=== PATIENT | male | born 1985 | race Caucasian/White ===

== ENCOUNTER 2020-11-26 20:34 | Inpatient (IN) | payer SELFPAY ==
[2020-11-26 21:15] LABS: #Lymphocytes 0.2 thou/uL (1.20-3.40); #Monocytes 0.3 thou/uL (0.11-0.59); #Neutrophils 5.7 thou/uL (1.40-6.50); %Basophils 0.1 % (0.0-1.0); %Lymphocytes 2.7 % (21.0-51.0); %Neutrophils 93.2 % (42.0-75.0); Hemoglobin 14.6 g/dL (14.0-18.0); Mean Corpuscular HGB CONC 36.7 g/dL (32.0-36.0); Mean Corpuscular Hemoglobin 32.3 pg (27.0-31.0); Mean Platelet Volume 7.1 fL (7.4-10.4); Platelet Count 204 thou/uL (130-400); RBC Distribution Width 12.1 % (11.5-14.5); Red Blood Cell (RBC) Count 4.53 mill/uL (4.70-6.10); White Blood Cell (WBC) Count 6.1 thou/uL (4.8-10.8)
[2020-11-26 21:36] LABS: ALT (SGPT) 156 U/L (8-55); AST (SGOT) 95 U/L (5-34); Albumin 3.2 g/dL (3.5-5.0); Alkaline Phosphatase 250 U/L (40-110); Anion Gap 17 mmol/L (10-20); BUN (Urea Nitrogen) 13 mg/dL (8.9-20.6); Bilirubin, Total 6.1 mg/dL (0.2-1.2); CK (CPK) 131 U/L (30-200); Calc. Creatinine Clearance 0 mL/min (70-130); Calcium 8.5 mg/dL (7.8-10.44); Carbon Dioxide 19 mmol/L (22-29); Chloride 102 mmol/L (98-107); Glucose 130 mg/dL (70-105); Potassium 4.4 mmol/L (3.5-5.1); Protein, Total 6.2 g/dL (6.0-8.3); Sodium 134 mmol/L (136-145)
[2020-11-26] MEDS ORDERED: Lidocaine 1% w/Epinephrine 1:100K 20 ML VIAL ONE (22:03)
[2020-11-26] MEDS ORDERED: Bupivacaine 0.25% HCL 30 ML VIAL ONE (22:03)
[2020-11-26] MEDS ORDERED: Fentanyl 250 MCG/5 ML VIAL ONE (22:21)
[2020-11-26] MEDS ORDERED: Midazolam HCl 2 mg/2 ml Vial ONE (22:27)
[2020-11-26] MEDS ORDERED: PROPOFOL 200 MG/20 ML VIAL ONE (22:33)
[2020-11-26] MEDS ORDERED: Rocuronium Bromide 10 MG/ML (10ML VIAL) ONE (22:33)
[2020-11-26] MEDS ORDERED: Succinylcholine 200 MG/10 ml SYRINGE FS ONE (22:33)
[2020-11-26] MEDS ORDERED: diphenhydrAMINE 50 MG/ML VIAL ONE (22:33)
[2020-11-26] MEDS ORDERED: Ketorolac Tromethamine 30 MG/ML VIAL ONE (22:33)
[2020-11-26] MEDS ORDERED: Dexamethasone 20 MG/5 ML VIAL ONE (22:33)
[2020-11-26] MEDS ORDERED: Glycopyrrolate 0.2 MG/ML 5 ML SYRINGE ONE (22:33)
[2020-11-26] MEDS ORDERED: Ondansetron PF 4 MG/2 ML Vial ONE (22:33)
[2020-11-26] MEDS ORDERED: Piperacillin/Tazobactam 3.375 GM VIAL ONE (22:40)
[2020-11-27] MEDS ORDERED: Dextrose 50% Abboject 50 ML SYRINGE SLOW IVP PRN (00:35)
[2020-11-27] MEDS ORDERED: Ondansetron PF 4 MG/2 ML Vial IVP PRN (00:35)
[2020-11-27] MEDS ORDERED: Dextrose 5% in Water 1,000 ML IV PRN (00:35)
[2020-11-27] MEDS ORDERED: Chloraseptic Spray 180 ml Bottle PO PRN (00:41)
[2020-11-27] MEDS ORDERED: Cepastat Lozenges 1 LOZ PO PRN (00:41)
[2020-11-27] MEDS ORDERED: Ondansetron HCl/PF 4 MG/2 ML Vial IVP PRN (00:46)
[2020-11-27] MEDS ORDERED: Promethazine HCl 25 MG/ML VIAL IM PRN (00:46)
[2020-11-27] MEDS ORDERED: HYDROmorphone 2 MG/ML VIAL SLOW IVP PRN (00:46)
[2020-11-27] MEDS ORDERED: PACU-Morphine 4MG/ML VIAL SLOW IVP PRN (00:46)
[2020-11-27] MEDS ORDERED: Morphine Sulfate 2 MG/ML SYRINGE SLOW IVP PRN (00:46)
[2020-11-27] MEDS ORDERED: Meperidine HCl/PF 25 MG/ML VIAL SLOW IVP PRN (00:46)
[2020-11-27] MEDS ORDERED: Promethazine HCl 25 MG/ML VIAL IVPB PRN (00:46)
[2020-11-27 01:56] VITALS: BMI 25.7
[2020-11-27] MEDS: Piperacillin/Tazobactam 3.375 GM in Sodium Chloride 0.9% 100 ML IVPB SCH ×3 (04:59→18:12)
[2020-11-27] MEDS: Sodium Chloride 0.9% 1,000 ML IV SCH ×4 (05:00→23:27)
[2020-11-27] MEDS: Pantoprazole 80 MG in Sodium Chloride 0.9% 100 ML IVPB SCH ×2 (05:00→15:14)
[2020-11-27 06:09] LABS: ALT (SGPT) 114 U/L (8-55); AST (SGOT) 67 U/L (5-34); Albumin 2.5 g/dL (3.5-5.0); Alkaline Phosphatase 179 U/L (40-110); Anion Gap 12 mmol/L (10-20); BUN (Urea Nitrogen) 16 mg/dL (8.9-20.6); Bilirubin, Total 5.7 mg/dL (0.2-1.2); Calc. Creatinine Clearance 133 mL/min (70-130); Calcium 7.4 mg/dL (7.8-10.44); Carbon Dioxide 21 mmol/L (22-29); Chloride 105 mmol/L (98-107); Globulin 2.5 g/dL (2.4-3.5); Glucose 125 mg/dL (70-105); Potassium 4.4 mmol/L (3.5-5.1); Sodium 134 mmol/L (136-145)
[2020-11-27 06:12] LABS: Band 17 % (5-11); Hemoglobin 11.5 g/dL (14.0-18.0); Hypochromia SLIGHT = 6-15 cells (100X) (0-5/hpf); Lymphocytes 2 % (21-51); MDiff Complete? YES; Mean Corpuscular HGB CONC 33.8 g/dL (32.0-36.0); Mean Corpuscular Hemoglobin 29.8 pg (27.0-31.0); Mean Corpuscular Volume 88.3 fL (78.0-98.0); Mean Platelet Volume 7.4 fL (7.4-10.4); Monocytes 5 % (0-10); Neutrophil 76 % (42-75); Platelet Count 158 thou/uL (130-400); Platelet Morphology Comment Appears Adequate; RBC Distribution Width 12.1 % (11.5-14.5); Red Blood Cell (RBC) Count 3.87 mill/uL (4.70-6.10); White Blood Cell (WBC) Count 6.8 thou/uL (4.8-10.8)
[2020-11-27] MEDS: Dextrose 5 % And 0.9 % NaCl 1,000 ML IV SCH ×3 (12:08→19:56)
[2020-11-27] MEDS: Morphine 4 MG/ML VIAL SLOW IVP PRN (19:57)
[2020-11-28] MEDS: Piperacillin/Tazobactam 3.375 GM in Sodium Chloride 0.9% 100 ML IVPB SCH ×4 (00:14→18:14)
[2020-11-28] MEDS: Dextrose 5 % And 0.9 % NaCl 1,000 ML IV SCH ×4 (01:05→13:57)
[2020-11-28] MEDS: Pantoprazole 80 MG in Sodium Chloride 0.9% 100 ML IVPB SCH ×3 (01:22→21:23)
[2020-11-28] MEDS: Sodium Chloride 0.9% 1,000 ML IV SCH (03:25)
[2020-11-28 05:34] LABS: #Lymphocytes 0.7 thou/uL (1.20-3.40); #Monocytes 1.1 thou/uL (0.11-0.59); #Neutrophils 8.3 thou/uL (1.40-6.50); %Basophils 0.2 % (0.0-1.0); %Eosinophils 0.1 % (0.0-10.0); %Lymphocytes 6.9 % (21.0-51.0); %Monocytes 10.7 % (0.0-10.0); %Neutrophils 82.1 % (42.0-75.0); Hemoglobin 11.2 g/dL (14.0-18.0); Mean Corpuscular HGB CONC 34.1 g/dL (32.0-36.0); Mean Corpuscular Hemoglobin 30.6 pg (27.0-31.0); Mean Corpuscular Volume 89.8 fL (78.0-98.0); Mean Platelet Volume 7.5 fL (7.4-10.4); Platelet Count 210 thou/uL (130-400); RBC Distribution Width 12.5 % (11.5-14.5); Red Blood Cell (RBC) Count 3.67 mill/uL (4.70-6.10); White Blood Cell (WBC) Count 10.1 thou/uL (4.8-10.8)
[2020-11-28 06:09] LABS: ALT (SGPT) 76 U/L (8-55); AST (SGOT) 28 U/L (5-34); Albumin 2.4 g/dL (3.5-5.0); Alkaline Phosphatase 141 U/L (40-110); Anion Gap 9 mmol/L (10-20); BUN (Urea Nitrogen) 14 mg/dL (8.9-20.6); Bilirubin, Total 2.6 mg/dL (0.2-1.2); Calc. Creatinine Clearance 153 mL/min (70-130); Calcium 7.3 mg/dL (7.8-10.44); Carbon Dioxide 22 mmol/L (22-29); Chloride 108 mmol/L (98-107); Globulin 2.7 g/dL (2.4-3.5); Glucose 143 mg/dL (70-105); Potassium 3.9 mmol/L (3.5-5.1); Protein, Total 5.1 g/dL (6.0-8.3); Sodium 135 mmol/L (136-145)
[2020-11-28] MEDS: Morphine 4 MG/ML VIAL SLOW IVP PRN ×5 (06:25→19:50)
[2020-11-28] MEDS: Fluconazole In NaCl,Iso-Osm 200 MG in Premix Bag 1 BAG IVPB SCH (15:16)
[2020-11-28] MEDS: D5 0.9% NS w/ 20 mEq KCl 1,000 ML IV SCH (15:17)
[2020-11-28] MEDS: Morphine 2 MG/ML VIAL SLOW IVP PRN ×2 (18:20→21:38)
[2020-11-29] MEDS: Piperacillin/Tazobactam 3.375 GM in Sodium Chloride 0.9% 100 ML IVPB SCH ×4 (00:57→19:20)
[2020-11-29] MEDS: D5 0.9% NS w/ 20 mEq KCl 1,000 ML IV SCH ×3 (02:18→23:02)
[2020-11-29] MEDS: Morphine 2 MG/ML VIAL SLOW IVP PRN ×4 (02:18→14:39)
[2020-11-29 05:46] LABS: #Eosinphils 0.1 thou/uL (0.0-0.7); #Lymphocytes 1.1 thou/uL (1.20-3.40); #Monocytes 0.7 thou/uL (0.11-0.59); #Neutrophils 4.8 thou/uL (1.40-6.50); %Basophils 0.2 % (0.0-1.0); %Eosinophils 1.8 % (0.0-10.0); %Lymphocytes 15.9 % (21.0-51.0); %Neutrophils 72.1 % (42.0-75.0); Hemoglobin 10.8 g/dL (14.0-18.0); Mean Corpuscular HGB CONC 33.5 g/dL (32.0-36.0); Mean Corpuscular Volume 89.7 fL (78.0-98.0); Mean Platelet Volume 7.1 fL (7.4-10.4); Platelet Count 286 thou/uL (130-400); RBC Distribution Width 12.2 % (11.5-14.5); Red Blood Cell (RBC) Count 3.61 mill/uL (4.70-6.10); White Blood Cell (WBC) Count 6.6 thou/uL (4.8-10.8)
[2020-11-29 06:08] LABS: ALT (SGPT) 49 U/L (8-55); AST (SGOT) 14 U/L (5-34); Albumin 2.4 g/dL (3.5-5.0); Alkaline Phosphatase 129 U/L (40-110); Anion Gap 8 mmol/L (10-20); BUN (Urea Nitrogen) 10 mg/dL (8.9-20.6); Bilirubin, Total 1.6 mg/dL (0.2-1.2); Calc. Creatinine Clearance 168 mL/min (70-130); Calcium 7.7 mg/dL (7.8-10.44); Carbon Dioxide 24 mmol/L (22-29); Chloride 109 mmol/L (98-107); Globulin 2.7 g/dL (2.4-3.5); Glucose 98 mg/dL (70-105); Potassium 3.6 mmol/L (3.5-5.1); Protein, Total 5.1 g/dL (6.0-8.3); Sodium 137 mmol/L (136-145)
[2020-11-29] MEDS: Pantoprazole 80 MG in Sodium Chloride 0.9% 100 ML IVPB SCH (09:04)
[2020-11-29] MEDS: Fluconazole In NaCl,Iso-Osm 200 MG in Premix Bag 1 BAG IVPB SCH (14:39)
[2020-11-29] MEDS: Promethazine HCl 25 MG/ML VIAL IM PRN ×2 (14:49→19:47)
[2020-11-29] MEDS: Piperacillin/Tazobactam 3.375 GM, Admixture Fee 1 EACH in Sodium Chloride 0.9% 100 ML IVPB SCH (19:19)
[2020-11-29] MEDS: Morphine 4 MG/ML VIAL SLOW IVP PRN (19:45)
[2020-11-30] MEDS: D5 0.9% NS w/ 20 mEq KCl 1,000 ML IV SCH ×2 (05:20→14:42)
[2020-11-30] MEDS: Piperacillin/Tazobactam 3.375 GM, Admixture Fee 1 EACH in Sodium Chloride 0.9% 100 ML IVPB SCH ×4 (05:23→20:34)
[2020-11-30] MEDS: Morphine 4 MG/ML VIAL SLOW IVP PRN (06:43)
[2020-11-30] MEDS: Promethazine HCl 25 MG/ML VIAL IM PRN (06:44)
[2020-11-30] MEDS: Morphine 2 MG/ML VIAL SLOW IVP PRN ×3 (14:43→22:55)
[2020-11-30] MEDS: Fluconazole In NaCl,Iso-Osm 200 MG in Premix Bag 1 BAG IVPB SCH (14:43)
[2020-11-30] MEDS: Pantoprazole 40 MG VIAL IVP SCH (19:48)
[2020-12-01] MEDS: Piperacillin/Tazobactam 3.375 GM, Admixture Fee 1 EACH in Sodium Chloride 0.9% 100 ML IVPB SCH ×4 (02:04→20:06)
[2020-12-01] MEDS: D5 0.9% NS w/ 20 mEq KCl 1,000 ML IV SCH ×3 (02:04→21:59)
[2020-12-01] MEDS: Morphine 2 MG/ML VIAL SLOW IVP PRN ×2 (04:18→18:35)
[2020-12-01] MEDS: Pantoprazole 40 MG VIAL IVP SCH ×2 (09:47→20:06)
[2020-12-01] MEDS: Hydrocodone-Acetamin 15 ML UDCUP PO PRN (10:56)
[2020-12-01] MEDS: Fluconazole In NaCl,Iso-Osm 200 MG in Premix Bag 1 BAG IVPB SCH (15:29)
[2020-12-02] MEDS: Morphine 2 MG/ML VIAL SLOW IVP PRN ×3 (00:11→22:49)
[2020-12-02] MEDS: Piperacillin/Tazobactam 3.375 GM, Admixture Fee 1 EACH in Sodium Chloride 0.9% 100 ML IVPB SCH ×2 (02:42→08:59)
[2020-12-02] MEDS: Pantoprazole 40 MG VIAL IVP SCH (08:59)
[2020-12-02] MEDS: D5 0.9% NS w/ 20 mEq KCl 1,000 ML IV SCH (09:34)
[2020-12-02] MEDS: Hydrocodone-Acetamin 15 ML UDCUP PO PRN ×2 (10:28→17:05)
[2020-12-02] MEDS ORDERED: Fluconazole 100 MG TAB PO SCH (15:00)
[2020-12-03] MEDS: Hydrocodone-Acetamin 15 ML UDCUP PO PRN ×2 (05:04→10:46)
[2020-12-03] MEDS ORDERED: Acetaminophen 325 MG TAB PO PRN ×2 (11:35)
[2020-12-03 11:53] VITALS: BP 112/73; TEMP 98.2
[2020-12-05 18:38] LABS: H. pylori IgA ABS Less than 9.0 units (0.0-8.9); H. pylori IgG ABS 2.29 (0.00-0.79); H. pylori IgM ABS Less than 9.0 units (0.0-8.9)
== END 2020-12-03 15:00 | disposition home or self-care (01) | DRG 329 ==
LOC: ERS 20:34 → SDC 21:13 → SURG A 11-27 00:35
PROVIDERS: ADMIT Surgery; ATTEND Surgery
PROC: 0DU947Z Supplement Duodenum with Autologous Tissue Substitute, Percutaneous Endoscopic Approach (ICD-10-PCS; principal; 2020-11-27)
DX: K26.5 Chronic or unspecified duodenal ulcer with perforation (principal); K65.0 Generalized (acute) peritonitis; Z20.822 Contact with and (suspected) exposure to COVID-19; F15.10 Other stimulant abuse, uncomplicated; F12.10 Cannabis abuse, uncomplicated; Z98.890 Other specified postprocedural states; Z83.79 Family history of other diseases of the digestive system
CPT/HCPCS: 36415; 74240; 80053; 82550; 83605; 85025; 87040; 87070; 87205; 99285; C9113; J1100; J1200; J1450; J1885; J2250; J2270; J2405; J2543; J2550; J2704; J3010; J3480; J3490; S0020

== ENCOUNTER 2020-12-23 14:10 | Outpatient (CLI) | payer OTHER ==
[~2020-12-23 14:10] MED LIST: Iopamidol 370 76% 100 ML VIAL ONE; Iopamidol 370 76% 50 ML VIAL FS ONE
== END 2020-12-23 14:11 | disposition home or self-care (01) ==
LOC: CT 14:10
PROVIDERS: ATTEND Surgery
DX: R10.9 Unspecified abdominal pain (principal); Z98.890 Other specified postprocedural states; K59.00 Constipation, unspecified; J90 Pleural effusion, not elsewhere classified
CPT/HCPCS: 74177; Q9967